=== PATIENT | female | born 1990 | race Caucasian/White ===

== ENCOUNTER 2019-07-18 13:01 | Inpatient (IN) | payer OTHER ==
[~2019-07-18] VITALS: Ht 160 cm; Wt 53.4 kg
[2019-07-18] MEDS ORDERED: POLYETHYLENE GLYCOL 17 GM PACKET PO PRN (17:30)
[2019-07-18] MEDS ORDERED: ACETAMINOPHEN 325 MG TABLET PO PRN (17:30)
[2019-07-18] MEDS ORDERED: DOCUSATE 100 MG CAPSULE PO PRN (17:30)
[2019-07-18] MEDS ORDERED: BISACODYL 10 MG SUPP PR PRN (17:30)
[2019-07-18 19:24] LABS: CHOL/HDL RATIO 2.5; FREE T4 (FREE THYROXINE) 1.3 ng/dL (0.76-1.46)
[2019-07-18 19:36] VITALS: BP 112/78
[2019-07-18] MEDS ORDERED: TRAZODONE 50MG TABLET ONE (21:06)
[2019-07-18] MEDS: TRAZODONE 50MG TABLET PO PRN (21:09)
[2019-07-18] MEDS ORDERED: PLEASE ENTER ALLERGIES MC SCH (21:30)
[2019-07-18] MEDS ORDERED: PLEASE ENTER HEIGHT AND WEIGHT MC SCH (21:30)
[2019-07-19 02:57] VITALS: BP 112/78
[2019-07-19] MEDS ORDERED: NICOTINE 14MG/24 HR PATCH.TD24 ONE (03:43)
[2019-07-19] MEDS ORDERED: NICOTINE 14MG/24 HR PATCH.TD24 TD ONE ×2 (04:00)
[2019-07-19 05:59] LABS: BASOPHILS # (AUTO) 0.03 x10^3/uL (0-0.1); BASOPHILS % (AUTO) 0 % (0-1); EOSINOPHILS # (AUTO) 0.12 x10^3/uL (0-0.4); EOSINOPHILS % (AUTO) 2 % (1-7); LYMPHOCYTES # (AUTO) 2.35 x10^3/uL (1-3.4); LYMPHOCYTES % (AUTO) 31 % (22-44); MD NO; MEAN CORPUSCULAR HEMOGLOBIN 29.5 pg (27.0-34.8); MEAN CORPUSCULAR HGB CONC 33.6 g/dL (32.4-35.8); MEAN CORPUSCULAR VOLUME 87.9 fL (80-100); MEAN PLATELET VOLUME 8.1 fL (7.4-10.4); MONOCYTES # (AUTO) 0.67 x10^3/uL (0.2-0.8); MONOCYTES % (AUTO) 9 % (2-9); NEUTROPHILS # (AUTO) 4.38 x10^3/uL (1.8-6.8); NEUTROPHILS % (AUTO) 58 % (42-75); PLATELET COUNT 249 x10^3/uL (130-400); RED BLOOD COUNT 5.05 x10^6/uL (3.82-5.3); RED CELL DISTRIBUTION WIDTH 13.4 % (9.6-15.2)
[2019-07-19 06:03] LABS: ANION GAP 9 mmol/L (5-15); CALCIUM 9.1 mg/dL (8.5-10.1); CHLORIDE 111 mmol/L (98-107)
[2019-07-19 06:04] LABS: CREATININE 0.82 mg/dL (0.55-1.02)
[2019-07-19 07:52] VITALS: BP 106/75
[2019-07-19] MEDS: ONDANSETRON ODT 4 MG PO PRN (12:59)
[2019-07-19] MEDS: DRONABINOL 2.5 MG CAPSULE PO SCH ×2 (18:00→20:30)
[2019-07-19] MEDS ORDERED: QUETIAPINE 25MG TABLET ONE (18:08)
[2019-07-19] MEDS: QUETIAPINE 25MG TABLET PO SCH (18:13)
[2019-07-19 19:08] VITALS: BP 98/64
[2019-07-19] MEDS: SENNA/DOCUSATE TABLET PO SCH (20:30)
[2019-07-19] MEDS ORDERED: CARBAMAZEPINE 200 MG TABLET PO SCH (21:00)
[2019-07-19] MEDS: TRAZODONE 50MG TABLET PO PRN (23:04)
[2019-07-20 07:00] VITALS: BP 115/83
[2019-07-20] MEDS: ONDANSETRON ODT 4 MG PO PRN (08:44)
[2019-07-20] MEDS ORDERED: IBUPROFEN 200 MG TABLET PO PRN (09:00)
[2019-07-20] MEDS ORDERED: DRONABINOL 2.5 MG CAPSULE PO SCH (11:30)
[2019-07-20] MEDS: DRONABINOL 2.5 MG CAPSULE PO SCH ×2 (11:41→16:25)
[2019-07-20] MEDS ORDERED: FLU VACC QS2019-20 36MOS UP/PF 0.5 ML IM-VACC ONE (15:30)
[2019-07-20] MEDS: NICOTINE 14MG/24 HR PATCH.TD24 TD SCH (15:35)
[2019-07-20 19:15] VITALS: BP 108/77
[2019-07-20] MEDS: CARBAMAZEPINE 200 MG TABLET PO SCH (21:00)
[2019-07-20] MEDS: SENNA/DOCUSATE TABLET PO SCH (21:00)
[2019-07-20] MEDS: QUETIAPINE 25MG TABLET PO SCH (21:02)
[2019-07-21 07:12] VITALS: BP 120/86
[2019-07-21] MEDS: DRONABINOL 2.5 MG CAPSULE PO SCH ×2 (07:38→11:36)
[2019-07-21] MEDS: CARBAMAZEPINE 200 MG TABLET PO SCH (08:30)
[2019-07-21] MEDS ORDERED: NICO-486 TD (09:55)
[2019-07-21] MEDS ORDERED: CARB200T4 PO (09:55)
[2019-07-21] MEDS ORDERED: QUET25TA7 PO (09:55)
[2019-07-21] MEDS: NICOTINE 14MG/24 HR PATCH.TD24 TD SCH (15:22)
== END 2019-07-21 15:58 | disposition home or self-care (01) | DRG 885 ==
LOC: 3E 17:06
PROVIDERS: ADMIT Psychiatry & Neurology Psychosomatic Medicine; ATTEND Psychiatry & Neurology Psychosomatic Medicine
DX: F31.64 Bipolar disorder, current episode mixed, severe, with psychotic features (principal); F17.210 Nicotine dependence, cigarettes, uncomplicated; F60.3 Borderline personality disorder; F64.9 Gender identity disorder, unspecified; R10.9 Unspecified abdominal pain; G47.00 Insomnia, unspecified; G89.29 Other chronic pain; Z79.899 Other long term (current) drug therapy; Z88.1 Allergy status to other antibiotic agents
CPT/HCPCS: 36415; 80048; 80061; 82607; 84439; 84443; 85025; 90686; 93005; Q0162; Q0167